=== PATIENT | female | born 1990 | race African-American/Black ===

== ENCOUNTER 2023-07-26 09:25 | Outpatient (CLI) | payer BC, MEDICAID, SELFPAY ==
--- NOTE | ~2023-07-26 | MR_ITS ---
MRI of the right knee Clinical history: Pain Technique: Coronal proton density and proton density-weighted images, sagittal proton-density and T2 fat-sat images, and axial proton-density fat-saturated images were acquired. Findings: Probable complete tear at the midportion of the ACL. Posterior cruciate ligament is intact. Medial collateral ligament and the lateral collateral ligament complex are intact. Popliteus tendon is intact. Medial and lateral menisci are intact, without evidence of tear. There are probable very subtle contusions at the posterolateral tibial plateau and central aspect of the lateral femoral condyle. Additional more prominent contusion at the posterior medial tibial plate au. Articular cartilage is well preserved. Centimeters is intact. Small joint effusion present. No [place]'s cyst. Impression: Suspected complete tear at the midportion of the ACL. Correlate with physical exam for ACL laxity. Subtle bone contusions, as detailed above. Small joint effusion. Reviewed, dictated and finalized at [facility]. Impression: Suspected complete tear at the midportion of the ACL. Correlate with physical e xam for ACL laxity. Subtle bone contusions, as detailed above. Small joint effusion.
== END 2023-07-26 09:26 ==
LOC: MICIMG 09:27
PROVIDERS: PCP Physician Assistant; Visit Provider Physician Assistant
DX: M25.561 Pain in right knee (principal)
CPT/HCPCS: 73721